=== PATIENT | male | born 1940 | race Caucasian/White ===

== ENCOUNTER → 2023-04-14 09:58 | Outpatient (REF) | payer OTHER, SELFPAY | LOC: WOUND 09:58 | PROVIDERS: ATTENDING PHYSICIAN Surgery; REFERRING PHYSICIAN Emergency Medicine | DX: L97.822 Non-pressure chronic ulcer of other part of left lower leg with fat layer exposed (principal); I87.2 Venous insufficiency (chronic) (peripheral); E66.8 Other obesity; G47.33 Obstructive sleep apnea (adult) (pediatric); Z79.01 Long term (current) use of anticoagulants; Z86.718 Personal history of other venous thrombosis and embolism | CPT/HCPCS: 11042; 99202; 99204 ==

== ENCOUNTER → 2023-05-15 08:53 | Outpatient (REF) | payer OTHER, SELFPAY | LOC: MRI 08:53 | PROVIDERS: ATTENDING PHYSICIAN Psychiatry & Neurology Neurology | DX: I63.89 Other cerebral infarction (principal); I63.9 Cerebral infarction, unspecified | CPT/HCPCS: 70544 ==

== ENCOUNTER → 2024-06-17 11:05 | Outpatient (REF) | payer OTHER, SELFPAY ==
[2024-06-17 13:11] LABS: PSA, Total - Diagnostic < 0.06 ng/ml (0.0-4.0)
== END ==
LOC: REG 11:05
PROVIDERS: ATTENDING PHYSICIAN Specialist
DX: C61 Malignant neoplasm of prostate (principal)
CPT/HCPCS: 36415; 84153

== ENCOUNTER → 2024-09-12 10:55 | Outpatient (REF) | payer OTHER, SELFPAY | LOC: RAD 10:55 | PROVIDERS: ATTENDING PHYSICIAN Emergency Medicine | DX: J18.9 Pneumonia, unspecified organism (principal) | CPT/HCPCS: 71046 ==

== ENCOUNTER → 2025-03-04 10:51 | Outpatient (REF) | payer MEDICARE, OTHER, SELFPAY ==
[2025-03-04 12:48] LABS: Erythrocyte Sed Rate 32 mm/hour (0-20)
[2025-03-04 13:02] LABS: Ferritin 32.3 ng/ml (17.9-464.0)
[2025-03-04 13:33] LABS: Folate 7.8 ng/ml (2.76-20); Vitamin B12 256 pg/ml (239-931)
== END ==
LOC: REG 10:51
PROVIDERS: ATTENDING PHYSICIAN Psychiatry & Neurology Neurology; FAMILY PHYSICIAN Emergency Medicine; REFERRING PHYSICIAN Specialist
DX: G31.84 Mild cognitive impairment of uncertain or unknown etiology (principal); C61 Malignant neoplasm of prostate; S81.012A Laceration without foreign body, left knee, initial encounter; S81.019A Laceration without foreign body, unspecified knee, initial encounter
CPT/HCPCS: 36415; 82607; 82728; 82746; 84153; 85652

== ENCOUNTER 2025-03-13 10:08 | Outpatient (RCR) | payer MEDICARE, OTHER, SELFPAY | END 2025-03-13 23:59 | disposition home or self-care (01) | LOC: RPT 10:08 | PROVIDERS: FAMILY PHYSICIAN Emergency Medicine | DX: S32.010D Wedge compression fracture of first lumbar vertebra, subsequent encounter for fracture with routine healing (principal); X58.XXXD Exposure to other specified factors, subsequent encounter; Z73.6 Limitation of activities due to disability | CPT/HCPCS: 97010; 97110; 97112; 97162 ==

== ENCOUNTER → 2025-03-16 15:22 | Outpatient (REF) | payer MEDICARE, OTHER, SELFPAY | LOC: RAD 15:22 | PROVIDERS: ATTENDING PHYSICIAN Internal Medicine Critical Care Medicine; FAMILY PHYSICIAN Emergency Medicine | DX: R93.89 Abnormal findings on diagnostic imaging of other specified body structures (principal) | CPT/HCPCS: 71250 ==

== ENCOUNTER 2025-04-07 10:08 | Outpatient (RCR) | payer MEDICARE, OTHER, SELFPAY | END 2025-04-12 09:32 | disposition home or self-care (01) | LOC: RPT 10:08 | PROVIDERS: ATTENDING PHYSICIAN Psychiatry & Neurology Neurology; FAMILY PHYSICIAN Emergency Medicine | DX: S32.010D Wedge compression fracture of first lumbar vertebra, subsequent encounter for fracture with routine healing (principal); Z73.6 Limitation of activities due to disability | CPT/HCPCS: 97110 ==

== ENCOUNTER → 2025-04-14 10:56 | Outpatient (REF) | payer MEDICARE, OTHER, SELFPAY ==
[2025-04-14 11:56] LABS: Urine Character Clear (Clear)
[2025-04-14 12:00] LABS: Hematocrit 44.3 % (39.0-52.0); Hemoglobin 14.3 g/dL (13.0-18.0); Mean Corp Hgb Conc. 32.3 g/dL (33.0-37.0); Mean Corpuscular Volume 94.7 fL (80.0-94.0); Nucleated Red Blood Cells % 0 % (-); Platelet Count 193 10^3/uL (130-400); Red Cell Dist. Width 13.9 % (11.5-14.5)
[2025-04-14 12:04] LABS: Urine Squamous Cell 0-2 /LPF (Few)
[2025-04-14 12:05] LABS: Urine Red Blood Cell 0-2 /HPF (0-2); Urine White Cell 0-2 /HPF (0-5)
[2025-04-14 12:23] LABS: ALT (SGPT) 16 U/L (0-50); AST (SGOT) 18 U/L (17-59); Albumin 4.0 g/dl (3.5-5.0); Alkaline Phosphatase 88 U/L (38-126); Blood Urea Nitrogen 20 mg/dl (9-20); Calcium 8.8 mg/dl (8.4-10.2); Carbon Dioxide 29 mmol/L (22-30); Chloride 106 mmol/L (98-107); Glucose 102 mg/dl (70-99); HDL Cholesterol 51 mg/dl; LDL Cholesterol, Calculated 64 mg/dl; Potassium 4.5 mmol/L (3.5-5.1); Sodium 142 mmol/L (135-145); Total Protein 6.5 g/dl (6.3-8.2); Very Low Density Lipoprotein 14 mg/dl (0-30); eGFR > 60.00
[2025-04-14 13:17] LABS: Glycohemoglobin (HgbA1c) 5.6 % (4.0-5.6)
[2025-04-14 14:53] LABS: Vitamin B12 257 pg/ml (239-931)
== END ==
LOC: REG 10:56
PROVIDERS: ATTENDING PHYSICIAN Emergency Medicine
DX: E53.8 Deficiency of other specified B group vitamins (principal); E78.00 Pure hypercholesterolemia, unspecified; R73.03 Prediabetes; E66.01 Morbid (severe) obesity due to excess calories; Z00.00 Encounter for general adult medical examination without abnormal findings
CPT/HCPCS: 36415; 80053; 80061; 81003; 81015; 82607; 83036; 84443; 85025

== ENCOUNTER 2025-05-12 14:36 | Outpatient (RCR) | payer MEDICARE, OTHER, SELFPAY | END 2025-05-12 23:59 | disposition home or self-care (01) | LOC: ROT 14:36 | PROVIDERS: ATTENDING PHYSICIAN Nurse Practitioner Adult Health; FAMILY PHYSICIAN Emergency Medicine | DX: G31.84 Mild cognitive impairment of uncertain or unknown etiology (principal); Z73.6 Limitation of activities due to disability; I10 Essential (primary) hypertension; Z91.81 History of falling | CPT/HCPCS: 97167; 97530; 97535 ==

== ENCOUNTER → 2025-05-12 15:30 | Outpatient (REF) | payer MEDICARE, OTHER, SELFPAY ==
[2025-05-12 17:05] LABS: C-Reactive Protein < 5.00 mg/L (0.0-10.00)
[2025-05-14 21:44] LABS: ds-DNA Ab, IgG Reflex To Titer 12 IU (0-24)
== END ==
LOC: REG 15:30
PROVIDERS: ATTENDING PHYSICIAN Internal Medicine Critical Care Medicine
DX: J84.9 Interstitial pulmonary disease, unspecified (principal); J45.909 Unspecified asthma, uncomplicated
CPT/HCPCS: 36415; 82085; 82164; 82550; 82785; 83516; 83880; 85652; 86038; 86140; 86225; 86235; 86331; 86430; 86606

== ENCOUNTER 2025-06-13 06:24 | Outpatient (RCR) | payer MEDICARE, OTHER, SELFPAY | END 2025-06-13 10:57 | disposition home or self-care (01) | LOC: ROT 06:24 | PROVIDERS: ATTENDING PHYSICIAN Nurse Practitioner Adult Health; FAMILY PHYSICIAN Emergency Medicine | DX: G31.84 Mild cognitive impairment of uncertain or unknown etiology (principal); Z73.6 Limitation of activities due to disability; I10 Essential (primary) hypertension; Z91.81 History of falling | CPT/HCPCS: 97530; 97535; 97537 ==